=== PATIENT | female | born 1960 | race Caucasian/White ===

== ENCOUNTER 2017-06-12 15:52 | Outpatient (CLI) | payer BC | END 2017-06-12 15:53 | disposition home or self-care (01) | LOC: BICRAD 15:52 | PROVIDERS: ATTEND Urology | DX: N20.0 Calculus of kidney (principal) | CPT/HCPCS: 74018 ==

== ENCOUNTER 2017-06-17 12:55 | Outpatient (CLI) | payer BC ==
--- NOTE | 2017-06-17 13:28 | RAD ---
TWO VIEWS OF THE CHEST: HISTORY: Dyspnea. COMPARISON: 11/01/2007 FINDINGS: Two views of the chest show normal sized cardiomediastinal silhouette. There is no evidence of consol idation, mass, or pleural effusion. The bones are unremarkable. IMPRESSION: No evidence of acute cardiopulmonary disease. POS: [facility]
== END 2017-06-17 12:56 | disposition home or self-care (01) ==
LOC: RAD 12:55
PROVIDERS: ATTEND Internal Medicine Critical Care Medicine
DX: R06.00 Dyspnea, unspecified (principal)
CPT/HCPCS: 71046

== ENCOUNTER 2017-11-10 14:24 | Outpatient (CLI) | payer BC ==
--- NOTE | 2017-11-10 15:32 | RAD ---
CHEST TWO VIEWS: History: Dyspnea. Comparison: 06-07-17 FINDINGS: Lungs are without focal airspace consolidation, pneumothorax or effusion. Cardiac silhouette and medi astinal contours are within normal limits. Mild scarring right lung base. No acute osseous abnormality. Mild spondylosis of the mid thoracic spine. IMPRESSION: No acute intrathoracic abnormality or significant change. POS: [facility]
== END 2017-11-10 14:25 | disposition home or self-care (01) ==
LOC: RAD 14:24
PROVIDERS: ATTEND Internal Medicine Critical Care Medicine
DX: R06.00 Dyspnea, unspecified (principal)
CPT/HCPCS: 71046

== ENCOUNTER 2018-02-19 10:41 | Outpatient (CLI) | payer BC | END 2018-02-19 10:42 | disposition home or self-care (01) | LOC: CTENTCT 10:41 | PROVIDERS: ATTEND Specialist | DX: J32.9 Chronic sinusitis, unspecified (principal) | CPT/HCPCS: 70486 ==

== ENCOUNTER 2019-10-14 17:02 | Emergency (ER) | payer BC, OTHER ==
[2019-10-15 17:28] LABS: SARS-CoV-2 MS2 Positive; SARS-CoV-2 N Gene Negative; SARS-CoV-2 S Gene Negative; SARS-CoV-2 orf1ab Negative
== END 2019-10-14 18:08 | disposition home or self-care (01) ==
LOC: ERS 17:02
DX: U07.1 COVID-19 (principal); J45.909 Unspecified asthma, uncomplicated; I10 Essential (primary) hypertension; Z79.899 Other long term (current) drug therapy
CPT/HCPCS: 87635; 99283; U0003

== ENCOUNTER 2024-12-16 13:19 | Outpatient (CLI) | payer MEDICARE, OTHER | END 2024-12-16 13:20 | disposition home or self-care (01) | LOC: BICMAMMO 13:19 | PROVIDERS: ATTEND Nurse Practitioner Family | DX: Z12.31 Encounter for screening mammogram for malignant neoplasm of breast (principal); Z85.828 Personal history of other malignant neoplasm of skin | CPT/HCPCS: 77063; 77067 ==